=== PATIENT | male | born 2000 | race Caucasian/White ===

== ENCOUNTER 2023-04-24 12:32 | Emergency (ER) | payer SELFPAY ==
[2023-04-24] VITALS (11 sets, daily range): BP systolic 137–142; BP diastolic 88–89; PULSE 82–109; RESP 12–24; TEMP 36.4; O2SAT 98–100; BMI 27.3
--- NOTE | 2023-04-24 12:51 | PC.NURSE ---
PT STATES HAS NEVER BEEN DIAGNOSED WITH PEANUT ALLERGY BUT THINKS HE MIGHT BE ALLERGIC OR SENSITIVE TO PEANUTS BECAUSE SOMETIMES GET SOB AFTER EATING PEANUTS. PT DOES NOT USE AN EPI PEN. PT ATE FOOD WITH PECAN 1 HR AGO TOOK 75MG BENADRYL. PT STATES LUNGS FEEL HEAVY. PT DOES NOT APPEAR TO BE IN ANY DISTRESS OR VISIBLE SOB. PHYSICIAN NOTIFIED
[2023-04-24] MEDS: PREDNISONE 20 MG TABLET 40 MG PO (13:20)
[2023-04-24] MEDS: FAMOTIDINE 20 MG TABLET 40 MG PO (13:20)
--- NOTE | 2023-04-24 13:33 | ED.GENADUL1 ---
HPI - General Adult General Chief complaint: Allergic Reaction Time Seen by Provider: 04/24/23 13:04 Source: patient Mode of arrival: walk-in Limitations: no limitations History of Present Illness HPI narrative: Patient is a 22-year-old male who is presenting to the Emergency Room after a ALLERGIC reaction to nuts. Patient states he is ALLERGIC to some nuts and other nuts he's not. Patient has never had any type of ALLERGY testing since he was a child. Patient's been having intermittent nut ALLERGY since a child, But he has never had formal testing. He currently has no PCP. Patient's employer is at bedside, he can talk about everything in front of his employer. Patient ate a brownie that has some type of pecans are not's around 11:30. Patient states he'll get a warm flushed feeling in his lungs, his face again flush, slightly scratchy throat, no swelling to his lips, tongue, no urticaria. Patient took 3 Benadryl that a coworker head. 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 Patient is feeling better at this time. Patient has never had a EpiPen. Patient has no airway compromise, patient is feeling better. Patient told me multiple times during HPI that he knows he needs to see a PCP and have official testing done, he just has not done this yet. No other acute complaints. No nausea or vomiting. . All systems are negative except as noted/marked. All systems reviewed and otherwise negative. . Nurses note and vital signs reviewed and patient is not hypoxic. General: The patient appears well and in no apparent distress. Patient is resting comfortably on cart. Patient is not toxic, lethargic, or listless Skin: Warm, dry, no pallor noted. There is no rash noted. No petechiae, purpura. Patient has faces flushing, no Angioedema, no swelling to lips, tongue, no airway compromise. Head: Normocephalic, atraumatic Eye: Normal conjunctiva, no drainage, EOMI. PERRL Ears, Nose, Mouth, and Throat: oral mucosa is moist. Nares patent. Mouth without vesicles. Cardiovascular: Regular Rate and Rhythm, no murmur, gallop, rub; No tenderness to the anterior, lateral, posterior chest wall Respiratory: Patient is in no distress, no accessory muscle use, lungs are clear to auscultation, no wheezing, rales or rhonchi Back: non-tender, no CVA tenderness bilaterally to percussion. No CT LS midline pain GI: soft, no tenderness to palpation, no masses appreciated. No rebound, guarding, or rigidity noted. No flank pain bilateral, No distention Musculoskeletal: Patient has full range of motion of all of the extremities, no motor, sensory, or focal neurological deficits Neurological: A&O x3, normal speech Psychiatric: Cooperative Related Data Home Medications Medication Instructions Recorded Confirmed escitalopram oxalate 20 mg tablet 20 mg PO DAILY 04/24/23 04/24/23 hydroxyzine pamoate 50 mg capsule 50 mg PO BEDTIME 04/24/23 04/24/23 methylphenidate HCl 36 mg 36 mg PO DAILY 04/24/23 04/24/23 tablet,extended release 24 hr (Concerta) Previous Rx's Medication Instructions Recorded prednisone 50 mg tablet 50 mg PO DAILY 1st dose 04/25 3 04/24/23 days #3 tabs Allergies Allergy/AdvReac Type Severity Reaction Status Date / Time No Known Drug Allergies Allergy Verified 04/24/23 12:39 Exam Constitutional Vital Signs, click to edit/add: Last Vital Signs Temp 97.5 F L 04/24/23 12:39 Pulse 98 H 04/24/23 13:10 Resp 24 04/24/23 13:10 BP 139/89 04/24/23 13:01 Pulse Ox 100 04/24/23 13:10 O2 Del Method Room Air 04/24/23 12:39 Course Vital Signs Vital signs: Vital Signs Temperature 97.5 F L 04/24/23 12:39 Pulse Rate 102 H 04/24/23 12:39 Respiratory Rate 20 04/24/23 12:39 Blood Pressure 142/89 H 04/24/23 12:39 Pulse Oximetry 99 04/24/23 12:39 Oxygen Delivery Method Room Air 04/24/23 12:39 Temperature 97.5 F L 04/24/23 12:39 Pulse Rate 98 H 04/24/23 13:10 Respiratory Rate 24 04/24/23 13:10 Blood Pressure 139/89 04/24/23 13:01 Pulse Oximetry 100 04/24/23 13:10 Oxygen Delivery Method Room Air 04/24/23 12:39 Medical Decision Making MDM Narrative Medical decision making narrative: Patient was seen in the Emergency Room approximately Patient has been observed for 2 hours after he had taken Benadryl. Patient is feeling better. Patient was given a Pepcid and prednisone. Patient feels better. Patient is drinking with no difficulty Patient was educated on H1 and H2 receptors in the body.Patient was educated using antihistamines and Pepcid along with steroids as needed. Patient was given a prescription for EpiPen to use if needed. Patient will follow-up with PCP, no questions at discharge. Patient looks well. Patient was given a PCP list to follow-up with. Patient knows that he must see an horticultural manager for official testing so he knows what he is ALLERGIC to and not in the nut family/. Patient says that some not seeking the, others he cannot, but he does not know what his . Patient was not aware of any nuts in the fudge that he ate today. Discharge Plan Discharge Chief Complaint: Allergic Reaction Clinical Impression: Allergic reaction Patient Disposition: Home, Self-Care Prescriptions / Home Meds: New prednisone 50 mg tablet 50 mg PO DAILY 3 Days Qty: 3 0RF No Action methylphenidate HCl [Concerta] 36 mg tablet extended release 24hr 36 mg PO DAILY escitalopram oxalate 20 mg tablet 20 mg PO DAILY hydroxyzine pamoate 50 mg capsule 50 mg PO BEDTIME Instructions: Food Allergy (ED), General Allergic Reaction (ED) Additional Instructions: As discussed at bedside, keep an emergency medication with you at work today consistent either Claritin or Zyrtec or Benadryl along with Pepcid. Take her next dose of prednisone tomorrow. I have given you a prescription for the EpiPen to use as a worst case scenario as discussed at bedside. If you having significant hives, significant swelling of her lips, tongue, significant difficulties breathing, or any other significant concerns, use the EpiPen as instructed. A PCP list has been given to you. You must follow-up with PCP and either dermatology or an horticultural manager for definitive testing ssince he never done this yet as discussed. Stand Alone Forms: Portal Instructions
--- NOTE | 2023-04-24 14:42 | ECG_ITS ---
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
== END 2023-04-24 13:45 | disposition home or self-care (01) ==
PROVIDERS: Emergency Provider Emergency Medicine
DX: T78.1XXA Other adverse food reactions, not elsewhere classified, initial encounter (principal); R00.0 Tachycardia, unspecified; Z79.899 Other long term (current) drug therapy
CPT/HCPCS: 93005; 99283

== ENCOUNTER 2023-08-18 16:24 | Emergency (ER) | payer OTHER, SELFPAY ==
[2023-08-18 16:28] VITALS: BP 145/93; PULSE 76; RESP 16; TEMP 36.6; O2SAT 99; BMI 24.4
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
--- NOTE | 2023-08-18 16:34 | XR_ITS ---
[facility] [place] [id number] Patient Name: USMAN REAL MRN: [id number] date: 2000 Sex: M Assigned Patient Location: ER Current Patient Location: Accession/Order Number: [id number] Exam Date: 08/18/2023 16:40 Report Date: 08/18/2023 17:25 At the request of: MICHOACANO RUANO Procedure: XR abdomen 1V EXAM: XR abdomen 1V HISTORY: constipation COMPARISON: None. TECHNIQUE: Supine KUB FINDINGS: Moderate to large amount of colonic stool noted with small amounts of gas. Most prominent stool seen right upper quadrant hepatic flexure and left upper quadrant splenic flexure. No small bowel or gastric distention seen. Soft tissues unremarkable. No calcification. XR/XR abdomen 1V IMPRESSION: Moderate to large amount of colonic stool without distention. Electronically authenticated by: JASON HUBER Date: 08/18/2023 17:25
--- NOTE | 2023-08-18 17:08 | ED_ITS ---
HPI - General Adult General Chief complaint: Abdominal Pain Stated complaint: Constipation Time Seen by Provider: 08/18/23 16:34 History of Present Illness HPI narrative: 22-year-old male presents with chief complaint of constipation. Patient states he has used [id number]-[id number] MiraLAX and stool softeners at home. He did pass small amount of stool today. Denies any vomiting. Abdomen is soft. Bowel sounds are noted but are hypoactive.pt is non Toxic appearing. He states he is eating and drinking well Related Data Home Medications Medication Instructions Recorded Confirmed methylphenidate HCl 36 mg 36 mg PO DAILY 04/24/23 08/18/23 tablet,extended release 24 hr (Concerta) quetiapine 25 mg tablet 25 mg PO BEDTIME 08/18/23 08/18/23 Previous Rx's Medication Instructions Recorded epinephrine 0.3 mg/0.3 mL 0.3 mg (0.3 mL) IM Q30M PRN 04/24/23 injection, auto-injector (EpiPen anaphylaxis #2 ea 2-Shorty) peg 3350-electrolytes 236 30 ml PO Q1M #4,000 mL 08/18/23 gram-22.74 gram-6.74 gram-5.86 gram solution (Golytely) polyethylene glycol 3350 17 gram 17 g PO DAILY 4 days #14 ea 08/18/23 oral powder packet (Miralax) Allergies Allergy/AdvReac Type Severity Reaction Status Date / Time No Known Drug Allergies Allergy Verified 04/24/23 12:39 Review of Systems ROS Narrative All Systems are negative except as noted/marked. PFSH PFSH Social History Smoking status: Never smoker Exam Narrative Exam Narrative: Nurses note and vital signs reviewed and patient is not hypoxic. General: The patient appears well and in no apparent distress. Patient is resting comfortably on cart. Skin: Warm, dry, no pallor noted. There is no rash noted. Head: Normocephalic, atraumatic Eye: Normal conjunctiva, no drainage, EOMI. PERRL Ears, Nose, Mouth, and Throat: oral mucosa is moist. Nares patent. Mouth without vesicles. Ear canals patent. Tm's without Erythema Cardiovascular: Regular Rate and Rhythm Respiratory: Patient is in no distress, no accessory muscle use, lungs are clear to auscultation, no wheezing, rales or rhonchi GI: hypo active bowel sounds, no tenderness to palpation, no masses appreciated. No rebound, guarding, or rigidity noted. Musculoskeletal: The patient has no evidence of calf tenderness, no pitting edema, symmetrical pulses noted bilaterally Neurological: A&O x4, normal speech Psychiatric: Cooperative Constitutional Vital Signs, click to edit/add: Last Vital Signs Temp 97.8 F 08/18/23 16:28 Pulse 76 08/18/23 16:28 Resp 16 08/18/23 16:28 BP 145/93 H 08/18/23 16:28 Pulse Ox 99 08/18/23 16:28 O2 Del Method Room Air 08/18/23 16:28 Course Vital Signs Vital signs: Vital Signs Temperature 97.8 F 08/18/23 16:28 Pulse Rate 76 08/18/23 16:28 Respiratory Rate 16 08/18/23 16:28 Blood Pressure 145/93 H 08/18/23 16:28 Pulse Oximetry 99 08/18/23 16:28 Oxygen Delivery Method Room Air 08/18/23 16:28 Temperature 97.8 F 08/18/23 16:28 Pulse Rate 76 08/18/23 16:28 Respiratory Rate 16 08/18/23 16:28 Blood Pressure 145/93 H 08/18/23 16:28 Pulse Oximetry 99 08/18/23 16:28 Oxygen Delivery Method Room Air 08/18/23 16:28 Medical Decision Making MDM Narrative Medical decision making narrative: Presenting here with a chief complaint of constipation. X-rays reviewed shows no acute bowel obstruction. Bowel sounds are active on examination abdomen soft nontender to palpation. Patient be discharged home with prescription for M iraLAX and GoLytely. Patient instructed to use MiraLAX and the GoLytely for the next 2 days. Patient had no history of previous obstructions. Patient also encouraged to drink water rather than pop. He states he does not drink a lot of pop with the MiraLAX. Patient looks well at discharge. pt questions were answered Differential Diagnosis Differential Diagnosis: abdominal pain, bowel obstruction Medical Records Medical records reviewed: Yes I reviewed the patient's medical records Imaging Data Abdominal x-ray: Radiologist's impression: ITS Impressions Abdomen X-Ray 08/18/23 16:34 IMPRESSION: Moderate to large amount of colonic stool without distention. Electronically authenticated by: JASON HUBER Date: 08/18/2023 17:25 Discharge Plan Discharge Chief Complaint: Abdominal Pain Clinical Impression: Constipation Patient Disposition: Home, Self-Care Time of Disposition Decision: 17:05 Condition: Good Prescriptions / Home Meds: New polyethylene glycol 3350 [Miralax] 17 gram powder in packet 17 g PO DAILY 4 Days Qty: 14 0RF peg 3350-electrolytes [Golytely] 236-22.74-6.74 -5.86 gram recon soln 30 ml PO Q1M Qty: 4000 0RF Rx Instructions: drink 1/2 bottle today and remaining on 08/18/23 No Action methylphenidate HCl [Concerta] 36 mg tablet extended release 24hr 36 mg PO DAILY epinephrine [EpiPen 2-Shorty] 0.3 mg/0.3 mL auto-injector 0.3 mg IM Q30M PRN (Reason: anaphylaxis) Qty: 2 0RF Rx Instructions: do not exceed 12 doses per 24 hrs quetiapine 25 mg tablet 25 mg PO BEDTIME Stand Alone Forms: Portal Instructions Referrals: FATOUMATA CARPENTER [Primary Care Provider] - 1 week Discharge Date/Time: 08/18/23 17:12
== END 2023-08-18 17:12 | disposition home or self-care (01) ==
PROVIDERS: Emergency Provider Emergency Medicine; PCP Nurse Practitioner Family
DX: K59.00 Constipation, unspecified (principal); Z79.899 Other long term (current) drug therapy
CPT/HCPCS: 74018; 99283